=== PATIENT | female | born 1965 | race Caucasian/White ===

== ENCOUNTER → 2020-03-19 | Outpatient (CLI) | payer BC | END | disposition home or self-care (01) | LOC: PLD 15:51 → LAB SHORT 15:51 | DX: D48.5 Neoplasm of uncertain behavior of skin (principal) | CPT/HCPCS: 88305 ==

== ENCOUNTER 2024-01-12 08:16 | Day surgery (SDC) | payer BC ==
[2024-01-12] VITALS (12 sets, daily range): BP systolic 110–162; BP diastolic 70–103
[~2024-01-12] VITALS: Ht 167.6 cm; Wt 98.9 kg
[~2024-01-12 08:16] MED LIST: Lactated Ringer's 1,000 ML IV SCH
--- NOTE | 2024-01-12 09:01 | NUR ---
01/12/24 0901 June [place] HISTORY, CHART, MEDICATIONS AND ALLERGIES REVIEWED BEFORE START OF PROCEDURE. PATIENT CONFIRMS NPO STATUS AND AGREES WITH SCHEDULED PROCEDURE. 3-LEAD EKG REVIEWED WITH PHYSICIAN PRIOR TO START OF PROCEDURE. MONITOR INTACT WITH CONTINUOUS PULSE OXIMETRY,CAPNOGRAPHY, 3-LEAD EKG, INTERMITTENT BP. SUPPLEMENTAL O2 TO BE TITRATED THROUGHOUT PROCEDURE TO MAINTAIN O2 SATURATION ABOVE 90%. PATIENT DETERMINED TO BE ASA APPROPRIATE FOR PROPOFOL SEDATION PRIOR TO START OF PROCEDURE BY .
--- NOTE | 2024-01-12 09:18 | NUR ---
PT TO DAY SURGERY STEP DOWN FROM COLONOSCOPY; BEDSIDE REPORT RECEIEVED. PT IS AWAKE, ALERT AND ORIENTED; ABLE TO MOVE SELF IN BED. VSS. NO COMPLAINTS.
[2024-01-12] MEDS ORDERED: propofoL 40 ML IV ONE (09:20)
--- NOTE | 2024-01-12 09:28 | NUR ---
PT DECLINES PO FLUIDS. Discharge instructions reviewed with patient. Patient verbalizes understanding. Copy given to patient to take home. Patient States Post-Procedure ride home has been arranged.
--- NOTE | 2024-01-12 09:37 | NUR ---
Patient up to Ambulate independently. Gait steady Discharged via wheelchair to private car for ride home.
== END 2024-01-12 09:37 | disposition home or self-care (01) ==
LOC: ORSCMMR 08:16 → ORD 09:00 → ORSCMMR 09:37
PROVIDERS: Internal Medicine Gastroenterology
PROC: 0DBN8ZX Excision of Sigmoid Colon, Via Natural or Artificial Opening Endoscopic, Diagnostic (ICD-10-PCS; principal; 2024-01-12 09:00)
DX: Z12.11 Encounter for screening for malignant neoplasm of colon (principal); Z80.0 Family history of malignant neoplasm of digestive organs; K63.5 Polyp of colon
CPT/HCPCS: 88305; J2704; J7120